=== PATIENT | female | born 1970 | race Caucasian/White ===

== ENCOUNTER 2019-11-13 01:55 | Emergency (ER) | payer BC ==
[~2019-11-13] VITALS: Ht 157.5 cm; Wt 47.3 kg
--- NOTE | 2019-11-13 02:15 | NUR ---
pt c/o feeling light headed, bp dropped. pt encouraged to reposition et. close eyes. vs rechecked et. improving.
[2019-11-13] MEDS ORDERED: LACTATED RINGERS 1,000 ML IV ONE (02:24)
--- NOTE | 2019-11-13 02:46 | ED Fall/Injury ---
General Chief Complaint: Trauma-Non Activation Stated Complaint: FELL HIT HEAD Nursing Triage Note: syncopal episode, fall from standing position. laceration to left posterior head. Source: patient Exam Limitations: no limitations (FLEX MCKEON MED STUDENT) History of Present Illness Date Seen by Provider: Nov 13, 2019 Time Seen by Provider: 02:31 Initial Comments PT presents to ED with CC of headache after fall that occured at approx. 0120 11/13/19. Pt was walking into garage, felt lightheaded and fell to the floor, striking the back of her head. Pt tried to get up, felt lightheadedness again and fell once more. Both times pt endorses she lost consciousness. Had similar symptoms 15 years ago but resolved spontaneously and she did not find reason why. Denies consuming any drugs/alcohol. No significant past medical history. Location Injury Occurred: home Occurred: just prior to arrival Severity: mild Injuries/Pain Location: head (occiput) Context: fainted, lightheaded Loss of Consciousness: brief (seconds) Associated Symptoms (Fall): No Abdominal Pain, No Chest Pain, No Confusion; Dizziness, Headache, Lightheadedness; No Muscle Spasms, No Nausea/Vomiting, No Neck Pain, No Ringing in Ears, No Seizures, No Shortness of Air, No Vision Changes (FLEX MCKEON MED STUDENT) Occurred: just prior to arrival Severity: mild Injuries/Pain Location: head (occiput) Context: fainted, lightheaded Loss of Consciousness: brief (seconds) Associated Symptoms (Fall): Headache; No Neck Pain (LOVE WEATHERS MD) Allergies and Home Medications Allergies Coded Allergies: No Known Drug Allergies (Unverified , 11/13/19) Home Medications No Active Prescriptions or Reported Meds Patient Home Medication List Home Medication List Reviewed: Yes (FLEX MCKEON MED STUDENT) Home Medication List Reviewed: Yes (LOVE WEATHERS MD) Review of Systems Review of Systems Constitutional: No chills, No fever Eyes: Denies Blurred Vision, Denies Decreased Acuity, Denies Pain Ears, Nose, Mouth, Throat: denies ear pain, denies ear discharge, denies nose pain, denies nose discharge, denies mouth pain, denies throat pain Respiratory: No cough Cardiovascular: No chest pain, No palpitations Gastrointestinal: No abdominal pain, No constipation, No diarrhea, No nausea, No vomiting Genitourinary: No frequency, No incontinence, No pain Musculoskeletal: No back pain, No joint pain Skin: No lesions, No lumps, No rash Psychiatric/Neurological: Headache; Denies Numbness, Denies Paresthesia, Denies Tingling (FLEX MCKEON MED STUDENT) Constitutional: see HPI Eyes: No Symptoms Reported Ears, Nose, Mouth, Throat: no symptoms reported Respiratory: no symptoms reported Cardiovascular: see HPI; No chest pain, No palpitations; syncope Gastrointestinal: no symptoms reported Genitourinary: no symptoms reported : No Skin: lesions (posterior scalp small laceration) (LOVE WEATHERS MD) Past Cfpnldl-Jikupn-Eeujmf Hx Past Med/Social Hx: Reviewed Nursing Past Med/Soc Hx (LOVE WEATHERS MD) Patient Social History Alcohol Use: Rarely Uses Recreational Drug Use: No Smoking Status: Never a Smoker 2nd Hand Smoke Exposure: No Recent Foreign Travel: No Contact w/Someone Who Travel: No Recent Infectious Disease Expo: No Recent Hopitalizations: No Physical Abuse: No Sexual Abuse: No Mistreated: No Fear: No (FLEX MCKEON MED STUDENT) Immunizations Up To Date Tetanus Booster (TDap): Less than 5yrs (FLEX MCKEON MED STUDENT) Seasonal Allergies Seasonal Allergies: No (FLEX MCKEON MED STUDENT) Past Medical History Surgeries: Yes (cosmetic) Abdominal Respiratory: No Cardiac: No Neurological: No : No PAN HELPER History: Menopausal Genitourinary: No Gastrointestinal: No Musculoskeletal: No Endocrine: No HEENT: No Cancer: No Psychosocial: No Integumentary: No Blood Disorders: No (FLEX MCKEON MED STUDENT) Family Medical History Reviewed Nursing Family Hx (LOVE WEATHERS MD) Cancer (breast ) (FLEX MCKEON MED STUDENT) Physical Exam Vital Signs Vital Signs - First Documented 11/13/19 01:58 Temp 36.4 Pulse 88 Resp 18 B/P (MAP) 112/95 (101) Pulse Ox 97 O2 Delivery Room Air (LOVE WEATHERS MD) Vital Signs Capillary Refill : Less Than 3 Seconds (FLEX MCKEON MED STUDENT) Height, Weight, BMI Height: '" Weight: lbs. oz. kg; 19.00 BMI Method: General Appearance: WD/WN, no apparent distress HEENT: PERRL/EOMI, TMs normal, pharynx normal Neck: supple, normal inspection Cardiovascular: regular rate, rhythm, no edema, no gallop, no murmur Respiratory: chest non-tender, lungs clear, normal breath sounds, no respirato ry distress, no accessory muscle use Peripheral Pulses: 2+ Dorsalis Pedis (R), 2+ Left Dors-Pedis (L), 2+ Radial Pulses (R), 2+ Radial Pulses (L) Gastrointestinal: non tender, soft Back: no CVA tenderness, no vertebral tenderness Extremities: no calf tenderness, normal capillary refill Neurologic/Psychiatric: conductor yard II-XII nml as tested, no motor/sensory deficits, alert, normal mood/affect, oriented x 3 Skin: normal color, warm/dry, other (1cm laceration, occiput. not actively bleeding) (FLEX MCKEON,MED STUDENT) General Appearance: WD/WN, no apparent distress HEENT: PERRL/EOMI, pharynx normal Neck: full range of motion, supple, normal inspection Cardiovascular: regular rate, rhythm, no murmur Respiratory: lungs clear, normal breath sounds Back: no CVA tenderness, no vertebral tenderness Neurologic/Psychiatric: alert, normal mood/affect, oriented x 3 Skin: warm/dry, other (1cm laceration, occiput. not actively bleeding) (LOVE WEATHERS MD) Carson Coma Score Best Eye Response: (4) Open Spontaneously Best Verbal Response: (5) Oriented Best Motor Response: (6) Obeys Commands (FLEX MCKEON,MED STUDENT) Best Eye Response: (4) Open Spontaneously Best Verbal Response: (5) Oriented Best Motor Response: (6) Obeys Commands (LOVE WEATHERS MD) Procedures/Interventions Wound Location: Scalp Other Wound Location 1.5 centimeter laceration posterior scalp in midline Wound Length (cm): 1.5 Wound's Depth, Shape: irregular Wound Explored: contaminated Irrigated w/ Saline (ccs): 20 Anesthesia: 1% Lidocaine Volume Anesthetic (ccs): 4 Wound Debrided: minimal Staple Repair: Stapler 35W Number of Sutures: 3 Layer Closure?: 1 Number Deep Layer Sutures: 0 Progress Hibiclens and water he is for cleaning on sponge. Anesthetized and closed with oly. Covered with antibiotic ointment. Tolerated procedure well with no complications. (LOVE WEATHERS MD) Progress/Results/Core Measures Results/Orders Lab Results Laboratory Tests Test 11/13/19 02:29 Range/Units White Blood Count 8.5 4.3-11.0 10^3/uL Red Blood Count 4.75 4.35-5.85 10^6/uL Hemoglobin 14.3 11.5-16.0 G/DL Hematocrit 41 35-52 % Mean Corpuscular Volume 86 80-99 FL Mean Corpuscular Hemoglobin 30 25-34 PG Mean Corpuscular Hemoglobin Concent 35 32-36 G/DL Red Cell Distribution Width 12.2 10.0-14.5 % Platelet Count 128 L 130-400 10^3/uL Mean Platelet Volume 10.7 H 7.4-10.4 FL Neutrophils (%) (Auto) 45 42-75 % Lymphocytes (%) (Auto) 46 H 12-44 % Monocytes (%) (Auto) 7 0-12 % Eosinophils (%) (Auto) 2 0-10 % Basophils (%) (Auto) 0 0-10 % Neutrophils # (Auto) 3.9 1.8-7.8 X 10^3 Lymphocytes # (Auto) 4.0 1.0-4.0 X 10^3 Monocytes # (Auto) 0.6 0.0-1.0 X 10^3 Eosinophils # (Auto) 0.1 0.0-0.3 10^3/uL Basophils # (Auto) 0.0 0.0-0.1 10^3/uL Sodium Level 141 135-145 MMOL/L Potassium Level 3.7 3.6-5.0 MMOL/L Chloride Level 107 98-107 MMOL/L Carbon Dioxide Level 20 L 21-32 MMOL/L Anion Gap 14 5-14 MMOL/L Blood Urea Nitrogen 15 7-18 MG/DL Creatinine 0.99 0.60-1.30 MG/DL Estimat Glomerular Filtration Rate 60 BUN/Creatinine Ratio 15 Glucose Level 98 70-105 MG/DL Calcium Level 9.5 8.5-10.1 MG/DL Corrected Calcium 8.5-10.1 MG/DL Total Bilirubin 0.3 0.1-1.0 MG/DL Aspartate Amino Transf (AST/SGOT) 30 5-34 U/L Alanine Aminotransferase (ALT/SGPT) 22 0-55 U/L Alkaline Phosphatase 52 40-136 U/L Troponin I < 0.028 <0.028 NG/ML Total Protein 7.6 6.4-8.2 GM/DL Albumin 4.7 H 3.2-4.5 GM/DL Serum Test, Qualitative NEGATIVE NEGATIVE Serum Alcohol < 10 <10 MG/DL (LOVE WEATHERS MD) My Orders Orders - LOVE WEATHERS MD Ct Head/Cervical Spine Wo (11/13/19 02:24) Urine Bedside (11/13/19 02:24) Ekg Tracing (11/13/19 02:24) Monitor-Rhythm Ecg Trace Only (11/13/19 02:24) Alcohol (11/13/19 02:24) Cbc With Automated Diff (11/13/19 02:24) Comprehensive Metabolic Panel (11/13/19 02:24) Troponin I (11/13/19 02:24) Ed Iv/Invasive Line Start (11/13/19 02:24) Lactated Ringers (Lr 1000 Ml Iv Solution (11/13/19 02:24) Let Solution (Let Solution) (11/13/19 03:00) Hcg,Qualitative Serum (11/13/19 03:01) (LOVE WEATHERS MD) Medications Given in ED Current Medications Medications Dose Ordered Sig/Nicola Route Start Time Stop Time Status Last Admin Dose Admin Lactated Ringer's 1,000 ml @ 0 mls/hr Q0M ONCE IV 11/13/19 02:24 11/13/19 02:27 DC 11/13/19 02:29 0 MLS/HR (LOVE WEATHERS MD) Vital Signs/I&O 11/13/19 01:58 Temp 36.4 Pulse 88 Resp 18 B/P (MAP) 112/95 (101) Pulse Ox 97 O2 Delivery Room Air (LOVE WEATHERS MD) Blood Pressure Mean: 101 Progress Progress Note : Time: 02:47 Progress Note Seen and evaluated. Will CT head to r/o acute processes. Ordering CBC, CMP, bhcg, EKG, and troponin. (FLEX MCKEON,MED STUDENT) Progress Note : Progress Note Have seen and evaluated the patient and agree with above except as indicated. Have directed the plan of care. Evaluation as above. IV, labs, CT head and EKG ordered. LR 1 L bolus. LET applied to wound. Tetanus up-to-date. 0455: CT reviewed by me and shows no acute findings. Wound repaired with oly. Tolerated procedure well. Discussed concussion precautions. Discharged home with return precautions. Patient verbalize understanding instructions and agreement with plan. (LOVE WEATHERS MD) Initial ECG Impression Date: Nov 13, 2019 Initial ECG Impression Time: 02:39 Initial ECG Rate: 78 Initial ECG Rhythm: Normal Sinus Initial ECG Comparisson: No Previous ECG Available Comment Sinus rhythm with normal axis. No evidence of ST elevation DE. No previous available for comparison. Interpreted by me. (LOVE WEATHERS MD) Diagnostic Imaging Diagonstic Imaging: CT Plain Films/CT/US/NM/MRI: c-spine, head Comments No acute findings (LOVE WEATHERS MD) Departure Impression Primary Impression: Head injury, closed, with brief LOC Additional Impressions: Scalp laceration Qualified Codes: S01.01XA - Laceration without foreign body of scalp, initial encounter Syncope Qualified Codes: R55 - Syncope and collapse Disposition: 01 HOME, SELF-CARE Condition: Stable Departure-Patient Inst. Decision time for Depature: 05:00 (LOVE WEATHERS MD) Referrals: NO,LOCAL PHYSICIAN (PCP/Family) Primary Care Physician Patient Instructions: Laceration Repair With [place] (DC), Syncope (Fainting) (DC), Closed Head Injury (DC) Add. Discharge Instructions: All discharge instructions reviewed with patient and/or family. Voiced understanding. You may take Tylenol/acetaminophen 650 mg every 6-8 hours as needed for pain. You may take ibuprofen 4 mg every 8 hours as needed for pain after 24 hours.. Plenty of fluids and eat a normal diet. Get plenty of rest. You should avoid activities that require increased focus for the next 24-48 hours. No activity that increases risk of head injury until 7 days after headache resolves. Return for worse pain, persistent vomiting, vision or balance problems, weakness, seizures or other concerns as needed. Follow-up with your DrVentura in a few days for recheck and further evaluation especially regarding the syncopal episode (passing out). Scripts No Active Prescriptions or Reported Meds Work/School Note: Work Release Form Date Seen in the Emergency Department: Nov 13, 2019 Return to Work: Nov 15, 2019 Restrictions: No Restrictions FLEX MCKEON,MED STUDENT Nov 13, 2019 02:45 LOVE WEATHERS MD Nov 13, 2019 03:25
[2019-11-13 02:50] LABS: BASOPHILS % (AUTO) 0 % (0-10); EOSINOPHILS # (AUTO) 0.1 10^3/uL (0.0-0.3); EOSINOPHILS % (AUTO) 2 % (0-10); HEMATOCRIT 41 % (35-52); HEMOGLOBIN 14.3 G/DL (11.5-16.0); LYMPHOCYTES % (AUTO) 46 % (12-44); MEAN CORPUSCULAR HEMOGLOBIN 30 PG (25-34); MEAN CORPUSCULAR HGB CONC 35 G/DL (32-36); MEAN CORPUSCULAR VOLUME 86 FL (80-99); MEAN PLATELET VOLUME 10.7 FL (7.4-10.4); MONOCYTES # (AUTO) 0.6 X 10^3 (0.0-1.0); MONOCYTES % (AUTO) 7 % (0-12); NEUTROPHILS # (AUTO) 3.9 X 10^3 (1.8-7.8); NEUTROPHILS % (AUTO) 45 % (42-75); PLATELET COUNT 128 10^3/uL (130-400); RED CELL DISTRIBUTION WIDTH 12.2 % (10.0-14.5); WHITE BLOOD COUNT 8.5 10^3/uL (4.3-11.0)
[2019-11-13] MEDS ORDERED: L.E.T. SYRINGE 5 ML MM STA (03:00)
[2019-11-13 03:08] LABS: ALANINE AMINOTRANSFERASE 22 U/L (0-55); ALBUMIN 4.7 GM/DL (3.2-4.5); ALKALINE PHOSPHATASE 52 U/L (40-136); BILIRUBIN,TOTAL 0.3 MG/DL (0.1-1.0); BUN/CREATININE RATIO 15; CALCIUM 9.5 MG/DL (8.5-10.1); CARBON DIOXIDE 20 MMOL/L (21-32); CHLORIDE 107 MMOL/L (98-107); CREATININE SERUM 0.99 MG/DL (0.60-1.30); GFR ESTIMATED 60; GLUCOSE 98 MG/DL (70-105); POTASSIUM 3.7 MMOL/L (3.6-5.0); SODIUM 141 MMOL/L (135-145); TOTAL PROTEIN 7.6 GM/DL (6.4-8.2)
[2019-11-13 05:08] VITALS: BP 113/72
--- NOTE | 2019-11-13 06:03 | Diagnostic Imaging Report ---
PROCEDURE: CT head and CT cervical spine without contrast. TECHNIQUE: Multiple contiguous axial images were obtained through the brain and cervical spine without the use of intravenous contrast. Sagittal and coronal reformations through the cervical spine were then performed. Auto Exposure Controls were utilized during the CT exam to meet ALARA standards for radiation dose reduction. INDICATION: Head and neck pain after fall. FINDINGS: The ventricles and sulci are within normal limits. There is no hydrocephalus or cerebral edema. There is no midline shift or mass effect. There is no intracranial mass, hemorrhage or extra-axial fluid collection. The visualized paranasal sinuses and mastoid air cells are clear. No fractures are identified. CERVICAL SPINE: Alignment is normal. There is no fracture or traumatic subluxation. The prevertebral soft tissues are within normal limits. The odontoid is intact and the lateral masses are well aligned. There are no soft tissue abnormalities. There is mild cervical spondylosis and degenerative disc disease. IMPRESSION: 1. No acute intracranial process. 2. Cervical spondylosis without acute fracture or traumatic subluxation. Dictated by: Dictated on workstation # [id number]
--- OUTSIDE RECORDS SUMMARY | 2019-12-11 04:15 | XMS REPORT | Continuity of Care Document ---
Author Organization Unknown Address Unknown Phone Unavailable Allergies Active Description Code Type Severity Reaction Onset Reported/Identified Relationship to Patient Clinical Status Yes No Known Drug Allergies [id number] Drug Allergy Unknown N/A 11/13/2019 Medications There is no data. Problems Date Dx Coded Attending Type Code Diagnosis Diagnosed By 11/26/2019 GENARO JC MD Ot S01.81XD LACERATION W/O FOREIGN BODY OF OTH PART 11/26/2019 GENARO JC MD Ot X58.XXXD EXPOSURE TO OTHER SPECIFIED FACTORS, SUB Procedures There is no data. Results Test Result Range Complete blood count (CBC) with automate d white blood cell (WBC) differential - 11/13/19 02:29 Blood leukocytes automated count (number/volume) 8.5 10*3/uL 4.3-11.0 Blood erythrocytes automated count (number/volume) 4.75 10*6/uL 4.35-5.85 Venous blood hemoglobin measurement (mass/volume) 14.3 g/dL 11.5-16.0 Blood hematocrit (volume fraction) 41 % 35-52 Automated erythrocyte mean corpuscular volume 86 [ foz_us] 80-99 Automated erythrocyte mean corpuscular h emoglobin (mass per erythrocyte) 30 pg 25-34 Automated erythrocyte mean corpuscular h emoglobin concentration measurement (mass/volume) 35 g/dL 32-36 Automated erythrocyte distribution width ratio 12. 2 % 10.0- 14.5 Automated blood platelet count (count/volume) 128 10*3/uL 130-400 Automated blood platelet mean volume measurement 10.7 [foz_us] 7.4-10.4 Automated blood neutrophils/100 leukocytes 45 % 42-75 Automated blood lymphocytes/100 leukocytes 46 % 12-44 Blood monocytes/100 leukocytes 7 % 0-12 Automated blood eosinophils/100 leukocytes 2 % 0-10 Automated blood basophils/100 leukocytes 0 % 0-10 Blood neutrophils automated count (number/volume) 3.9 10*3 1.8-7.8 Blood lymphocytes automated count (number/volume) 4.0 10*3 1.0-4.0 Blood monocytes automated count (number/volume) 0. 6 10*3 0.0-1.0 Automated eosinophil count 0.1 10*3/uL 0 .0-0.3 Automated blood basophil count (count/volume) 0.0 10*3/uL 0.0-0.1 Comprehensive metabolic panel - 11/13/19 02:29 Serum or plasma sodium measurement (moles/volume) 141 mmol/L 135-145 Serum or plasma potassium measurement (moles/volume) 3.7 mmol/L 3.6-5.0 Serum or plasma chloride measurement (moles/volume) 107 mmol/L 98-107 Carbon dioxide 20 mmol/L 21-32 Serum or plasma anion gap determination (moles/volume) 14 mmol/L 5-14 Serum or plasma urea nitrogen measurement (mass/volume ) 15 mg/dL 7-18 Serum or plasma creatinine measurement (mass/volume) 0.99 mg/dL 0.60-1.30 Serum or plasma urea nitrogen/creatinine mass ratio 15 NRG Serum or plasma creatinine measurement w ith calculation of estimated glomerular filtration rate 60 NRG Serum or plasma glucose measurement (mass/volume) 98 mg/dL 70-105 Serum or plasma calcium measurement (mass/volume) 9.5 mg/dL 8.5-10.1 Serum or plasma total bilirubin measurement (mass/volu me) 0.3 mg/dL 0.1-1.0 Serum or plasma alkaline phosphatase marci surement (enzymatic activity/volume) 52 U/L 40-136 Serum or plasma aspartate aminotransfera se measurement (enzymatic activity/volume) 30 U/L 5-34 Serum or plasma alanine aminotransferase measurement (enzymatic activity/volume) 22 U/L 0-55 Serum or plasma protein measurement (mass/volume) 7.6 g/dL 6.4-8.2 Serum or plasma albumin measurement (mass/volume) 4.7 g/dL 3.2-4.5 Serum or plasma choriogonadotropin (preg hany test) detection - 11/13/19 02:29 Serum or plasma choriogonadotropin ( test) de tection NEGATIVE NEGATIVE Serum or plasma troponin i.cardiac measu rement (mass/volume) - 11/13/19 02:29 Serum or plasma troponin i.cardiac measurement (mass/v olume) < ng/mL <0.028 Serum or plasma ethanol measurement (mas s/volume) - 11/13/19 02:29 Serum or plasma ethanol measurement (mass/volume) < mg/dL <10 Encounters ACCT No. Visit Date/Time Discharge Status Pt. Type Provider Facility Loc./Unit Complaint [id number] 11/20/2019 17:33:00 020 17:42:00 DIS Outpatient BABITA BROWN, GENARO Yung [facility] ER SURESH REMOVED HEAD [id number] 11/13/2019 01:57:00 020 05:13:00 DIS Emergency SARAHY BROWN, LOVE Davis [facility] ER FELL HIT HEAD
== END 2019-11-13 05:13 | disposition home or self-care (01) ==
LOC: EDUNIT# 01:55 → ER 01:57
DX: S06.9X1A Unspecified intracranial injury with loss of consciousness of 30 minutes or less, initial encounter (principal); S01.01XA Laceration without foreign body of scalp, initial encounter; R55 Syncope and collapse; W18.39XA Other fall on same level, initial encounter; W22.8XXA Striking against or struck by other objects, initial encounter; Y92.015 Private garage of single-family (private) house as the place of occurrence of the external cause
CPT/HCPCS: 12031; 36415; 70450; 72125; 80053; 80320; 84484; 84703; 85025; 93005; 93041; 96360

== ENCOUNTER 2019-11-20 17:32 | Emergency (ER) | payer BC ==
[~2019-11-20] VITALS: Ht 160 cm; Wt 47.3 kg
--- NOTE | 2019-11-20 17:40 | NUR ---
PT COMPLAINS OF SLIGHT PAIN TO THE LEFT OF THE INCISION. ABRASION NOTED. NO SWELLING OR REDNESS. AREA IS SCABBED OVER.
[2019-11-20 17:42] VITALS: BP 0/0
== END 2019-11-20 17:42 | disposition home or self-care (01) ==
LOC: EDUNIT# 17:32 → ER 17:33
DX: S01.81XD Laceration without foreign body of other part of head, subsequent encounter (principal); X58.XXXD Exposure to other specified factors, subsequent encounter

== ENCOUNTER → 2023-03-31 | Outpatient (CLI) | payer BC ==
--- NOTE | 2023-04-03 09:52 | Diagnostic Imaging Report ---
INDICATION: Routine screening. Comparison is made with prior mammogram from 12/14/2021 and 11/01/2019. 2-D and 3-D bilateral screening mammography was performed with CAD. CAD is utilized. The current study was also evaluated with a Computer Aided Detection (CAD) system. Bilateral subpectoral breast implants are again noted. Implant contours are smooth without evidence of extracapsular rupture. Both breasts are heterogeneously dense, limiting the sensitivity of mammography. The parenchymal pattern is stable. No mass or malignant-appearing microcalcifications are seen. Axillae are unremarkable. IMPRESSION: BI-RADS Category 2 No mammographic features suspicious for malignancy are identified. ACR BI-RADS Category 2: Benign findings. Result letter will be mailed to the patient. Note: At least 10% of breast cancer is not imaged by mammography. Dictated by: Dictated on workstation # [id number]
== END ==
LOC: RAD 08:33
PROVIDERS: ATTEND Family Medicine
DX: Z12.31 Encounter for screening mammogram for malignant neoplasm of breast (principal)
CPT/HCPCS: 77063; 77067